=== PATIENT | male | born 1930 | race Caucasian/White ===

== ENCOUNTER 2016-02-29 13:02 | Emergency (ER) | payer OTHER, MEDICAID ==
[2016-02-29 13:14] LABS: % IMMATURE GRANULYOCYTES 0.5 % (0.0-1.1); ABSOLUTE IMMATURE GRANULOCYTES 0.05 10^3/uL (0.00-0.10); ADD DIFF? NO; ADD MORPH? NO; ADD SCAN? NO; ATYPICAL LYMPHOCYTE FLAG 0 (0-99); FRAGMENT RBC FLAG 0 (0-99); HEMOGLOBIN 11.8 g/dL (13.7-17.5); LEFT SHIFT FLG 0 (0-99); LIPEMIA HEMOLYSIS FLAG 80 (0-99); MEAN CELL HEMOGLOBIN 32.1 pg (27.9-34.1); MEAN CELL HEMOGLOBIN CONCENTR. 32.8 g/dL (32.4-36.7); MEAN CELL VOLUME 97.8 fL (81.5-99.8); MEAN PLATELET VOLUME 8.9 fL (8.7-11.7); PLATELET CLUMPS FLAG 20 (0-99); PLATELET COUNT 333 10^3/uL (150-400); RED BLOOD CELL COUNT 3.68 10^6/uL (4.40-6.38); RED CELL DISTRIBUTION WIDTH 13.2 % (11.5-15.2)
[2016-02-29 13:26] VITALS: O2SAT 94
[2016-02-29 13:29] LABS: ALANINE AMINOTRANSFERASE 23 IU/L (21-72); ALBUMIN 3.6 g/dL (3.5-5.0); ALKALINE PHOSPHATASE 119 IU/L (38-126); ANION GAP 12 mEq/L (8-16); ASPARTATE AMINOTRANSFERASE 15 IU/L (17-59); BILIRUBIN,TOTAL 0.5 mg/dL (0.1-1.4); BILIRUBIN-CONJUGATED 0.3 mg/dL (0.0-0.5); BILIRUBIN-UNCONJUGATED 0.2 mg/dL (0.0-1.1); CALCIUM 8.5 mg/dL (8.5-10.4); CARBON DIOXIDE 26 mEq/l (22-31); CHLORIDE 92 mEq/L (97-110); CREATININE 6.5 mg/dL (0.7-1.3); GLOMERULAR FILTRATION RATE 8; GLUCOSE 101 mg/dL (70-100); SODIUM 130 mEq/L (134-144); TOTAL PROTEIN 7.4 g/dL (6.3-8.2)
[2016-02-29 13:32] LABS: POTASSIUM 7.1 mEq/L (3.5-5.2)
[2016-02-29 13:39] LABS: APTT 29.5 SEC (23.0-38.0); INR 1.02 (0.83-1.16); PROTIME(PATIENT) 13.3 SEC (12.0-15.0)
--- NOTE | 2016-02-29 13:45 | CPEKG ---
Heart Rate: 52 RR Interval: 1154 QRSD Interval: 138 QT Interval: 496 QTC Interval: 462 QRS [place]: 122 T Wave [place]: 34 EKG Severity - ABNORMAL ECG - EKG Impression: ACCELERATED JUNCTIONAL ESCAPE RHYTHM EKG Impression: RIGHT BUNDLE BRANCH BLOCK Electronically Signed By: Khloe Richmond 29-Feb-2016 15:11:20
[2016-02-29 14:12] VITALS: TEMP 97.7
--- NOTE | 2016-02-29 15:48 | EDPHY ---
H & P Stated Complaint: Black Tarry Stools - Personal History Current Tetanus Diphtheria and Acellular Pertussis (TDAP): Yes - Medical/Surgical History Hx Asthma: Yes Hx Chronic Respiratory Disease: Yes Hx Diabetes: Yes Hx Cardiac Disease: Yes Hx Renal Disease: Yes Hx Cirrhosis: No Hx Alcoholism: No Hx HIV/AIDS: No Hx Splenectomy or Spleen Trauma: No Other PMH: DMII, tooth extractions, renal failure - refuse dialysis, afib, COPD - Social History Smoking Status: Never smoked Time Seen by Provider: 02/29/16 13:06 HPI/ROS: Chief complaint: Dark stools History of present illness: This is an 85-year-old male who presents to the emergency department with EMS for evaluation of dark stools. Patient reportedly had the onset of symptoms over the last few days. He has had associated abdominal discomfort and fatigue. Symptoms have been persistent. No report of precipitating factors. No alleviating factors. No other associated signs or symptoms including no fevers, no nausea or vomiting, no actual diarrhea or constipation, no urinary symptoms. Further, patient has been asked to start dialysis but he is refusing. Review of systems: A 10 point review of systems was obtained and other than described above was negative (Mac Mccallum) - Physical Exam Exam: General Appearance: Alert, nontoxic. Eyes: Pupils equal and round no pallor or injection. ENT, Mouth: Mucous membranes moist. Respiratory: There are no retractions, lungs are clear to auscultation. Cardiovascular: Regular rate and rhythm. Gastrointestinal: Abdomen is soft and non tender, no masses, bowel sounds normal. Neurological: Alert. Strength and sensation intact and symmetrical. Skin: Warm and dry, no rashes. Musculoskeletal: Neck is supple non tender. Extremities are symmetrical, full range of motion. Psychiatric: There is no agitation. (Mac Mccallum) Constitutional: Initial Vital Signs Temperature (C) 36.5 C 02/29/16 13:09 Heart Rate 64 02/29/16 13:09 Respiratory Rate 14 02/29/16 13:09 Blood Pressure 112/48 L 02/29/16 13:09 O2 Sat (%) 93 02/29/16 13:09 O2 Delivery Mode Nasal Cannula O2 (L/minute) 2 Allergies/Adverse Reactions: amoxicillin [Amoxicillin] Allergy (Verified 07/05/12 15:29) Penicillins Allergy (Verified 07/05/12 15:29) Sulfa (Sulfonamide Antibiotics) Allergy (Verified 07/05/12 15:29) sulfamethoxazole [From Bactrim] Allergy (Verified 07/05/12 15:29) trimethoprim [From Bactrim] Allergy (Verified 07/05/12 15:29) Home Medications: Medication Instructions Recorded Atorvastatin Calcium [Lipitor 10 10 mg PO HS 02/19/15 mg (*)] traZODone [traZODONE 50MG (*)] 50 mg PO HS PRN 02/19/15 Acetaminophen [Tylenol ES 500 mg 500 - 1,000 mg PO Q6 PRN 03/12/15 (*)] Allopurinol [Allopurinol 100 MG 100 mg PO DAILY 03/12/15 (*)] Dextromethorphan HBr [Vicks 5 mg PO Q4 PRN 03/12/15 Dayquil Cough] Gabapentin [Neurontin 100 MG (*)] 100 mg PO TID 03/12/15 Albuterol Sulfate 2.5 mg IH Q6 PRN 07/07/15 Compazine 25mg supp (RX) 25 mg [place] Q6 PRN 07/07/15 Furosemide [Lasix 40 MG (*)] 40 mg PO DAILY 07/07/15 Insulin Aspart Novolog 70/30 4 units PO DAILY 07/07/15 Insulin Detemir 30 units SQ DAILY06 07/07/15 Insulin Detemir 34 units SQ DAILY16 07/07/15 LACTULOSE 30 ml PO DAILY PRN 07/07/15 Loperamide HCl 2 mg PO PRN 07/07/15 Metoprolol Succinate 50 mg PO DAILY 07/07/15 Miralax 17 gm (OTC) 17 gm PO DAILY PRN 07/07/15 Senna Prompt Capsule 1 tab PO DAILY PRN 07/07/15 Tamsulosin HCl 0.4 mg PO HS 07/07/15 Zofran 4 mg PO Q4 PRN 07/07/15 Medical Decision Making ED Course/Re-evaluation: Patient is discussed at length with my secondary supervising physician Dr. Oralia Ellis. Patient presents to the emergency department with EMS for dark stools, abdominal pain and fatigue. Patient is nontoxic. He is afebrile and vital signs are stable. Stool guaiac is negative. H&H is stable. I do not appreciate evidence of an acute GI bleed. However, patient appears to be in renal failure with complications of electrolyte disturbances, specifically hyperkalemia. I have discussed this with the patient with the assistance of the licensed weigher, he understands that he needs dialysis and that without it he ryne . He does not want dialysis. He is aware of the risks. Case management has been consulted, case management has consulted with patient's children and they are aware of the situation, they have talked with their father on the phone, again patient does not want dialysis. At this time I do not see indication for hospitalization. Patient will be discharged back to [facility]. Hospice will be arranged. (Mac Mccallum) Differential Diagnosis: Included but not limited to GI bleed, biliary tract disease, changes in dietary intake, medication usage (Mac Mccallum) Other Provider: The patient was evaluated and managed by the physician office clerk assistant. I have reviewed this chart and I agree with the findings and I am comfortable with the plan of care as documented, as indicated by my signature. I am the secondary supervising physician. (Oralia Ellis) - Data Points Laboratory Results: Laboratory Results 02/29/16 12:45 02/29/16 12:45 Departure - Departure Disposition: Home, Routine, Self-Care Clinical Impression: Stool color abnormal, Renal failure, Hyperkalemia Condition: Critical Additional Instructions: Please provide hospice evaluation/consultation to patient and family. Referrals: OUT OF STATE,. [Primary Care Provider] - As per Instructions
[2016-02-29 17:28] VITALS: BP 108/89; PULSE 56; RESP 20
== END 2016-02-29 17:28 | disposition home or self-care (01) ==
LOC: EDUNIT#
DX: R19.5 Other fecal abnormalities (principal); N19 Unspecified kidney failure; E87.5 Hyperkalemia; E11.9 Type 2 diabetes mellitus without complications; J44.9 Chronic obstructive pulmonary disease, unspecified; Z79.4 Long term (current) use of insulin

== ENCOUNTER 2017-11-12 12:01 | Emergency (ER) | payer OTHER, MEDICAID ==
--- NOTE | 2017-11-12 13:00 | EDPHY ---
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 He also has a history of gout. He fell off of the toilet today and twisted his foot. He has pain in the left foot. He denies pain in his leg or knee. He has chronic edema in his left arm on both feet. He has had ultrasounds within the last month which are negative. He takes Lasix for this. He did not hit his head. He denies injuries to his other extremities or torso. Severity: Severe Modifying factors: None REVIEW OF SYSTEMS: Constitutional: denies: chills, fever, recent illness, recent injury EENTM: denies: blurred vision, double vision, nose congestion Respiratory: denies: cough, shortness of breath Cardiac: denies: chest pain, irregular heart rate, lightheadedness, palpitations Gastrointestinal/Abdominal: denies: abdominal pain, diarrhea, nausea, vomiting, blood streaked stools Genitourinary: denies: dysuria, frequency, hematuria, pain Musculoskeletal: denies: joint pain, muscle pain Skin: denies: lesions, rash, jaundice, bruising Neurological: denies: headache, numbness, paresthesia, tingling, dizziness, weakness Hematologic/Lymphatic: denies: blood clots, easy bleeding, easy bruising Immunologic/allergic: denies: HIV/AIDS, transplant 10 systems reviewed and negative except as noted EXAM: GENERAL: Well-appearing, well-nourished and in no acute distress. HEAD: Atraumatic, normocephalic. EYES: Pupils equal round and reactive to light, extraocular movements intact, sclera anicteric, conjunctiva are normal. ENT: TMs normal, nares patent, oropharynx clear without exudates. Moist mucous membranes. NECK: Normal range of motion, supple without lymphadenopathy or JVD. LUNGS: Breath sounds clear to auscultation bilaterally and equal. No wheezes rales or rhonchi. HEART: Regular rate and rhythm without murmurs, rubs or gallops. ABDOMEN: Soft, nontender, normoactive bowel sounds. No guarding, no rebound. No masses appreciated. BACK: No CVA tenderness, no spinal tenderness, step-offs or deformities EXTREMITIES: Extreme tenderness to left foot diffusely, no obvious deformity. 2+ pitting edema which appears to be baseline. 3+ pitting edema in his left arm which is wrapped and is baseline. NEUROLOGICAL: Cranial nerves II through XII grossly intact. Normal speech, normal gait. 5/5 strength, normal movement in all extremities, normal sensation , normal reflexes PSYCH: Normal mood, normal affect. SKIN: Warm, dry, normal turgor, no visible rashes or lesions. Source: Patient Exam Limitations: Language barrier (Front Desk Clerk used) - Personal History Current Tetanus/Diphtheria Vaccine: Unsure Current Tetanus Diphtheria and Acellular Pertussis (TDAP): Unsure - Medical/Surgical History Hx Asthma: Yes Hx Chronic Respiratory Disease: Yes Hx Diabetes: Yes Hx Cardiac Disease: Yes Hx Renal Disease: Yes Hx Cirrhosis: No Hx Alcoholism: No Hx HIV/AIDS: No Hx Splenectomy or Spleen Trauma: No Other PMH: DMII, tooth extractions, renal failure - refuse dialysis, afib, COPD - Family History Significant Family History: No pertinent family hx - Social History Smoking Status: Never smoked Alcohol Use: Sober Drug Use: None Constitutional: Initial Vital Signs Temperature (C) 36.9 C 11/12/17 12:08 Heart Rate 86 11/12/17 12:08 Respiratory Rate 18 11/12/17 12:08 Blood Pressure 129/61 H 11/12/17 12:08 O2 Sat (%) 97 11/12/17 12:08 O2 Delivery Mode Room Air Allergies/Adverse Reactions: amoxicillin [Amoxicillin] Allergy (Verified 07/05/12 15:29) Penicillins Allergy (Verified 07/05/12 15:29) Sulfa (Sulfonamide Antibiotics) Allergy (Verified 07/05/12 15:29) sulfamethoxazole [From Bactrim] Allergy (Verified 07/05/12 15:29) trimethoprim [From Bactrim] Allergy (Verified 07/05/12 15:29) Home Medications: Medication Instructions Recorded Atorvastatin Calcium [Lipitor 10 10 mg PO HS 02/19/15 mg (*)] traZODone [traZODONE 50MG (*)] 50 mg PO HS PRN 02/19/15 Acetaminophen [Tylenol ES 500 mg 500 - 1,000 mg PO Q6 PRN 03/12/15 (*)] Allopurinol [Allopurinol 100 MG 100 mg PO DAILY 03/12/15 (*)] Dextromethorphan HBr [Vicks 5 mg PO Q4 PRN 03/12/15 Dayquil Cough] Gabapentin [Neurontin 100 MG (*)] 100 mg PO TID 03/12/15 Albuterol Sulfate 2.5 mg IH Q6 PRN 07/07/15 Compazine 25mg supp (RX) 25 mg [place] Q6 PRN 07/07/15 Furosemide [Lasix 40 MG (*)] 40 mg PO DAILY 07/07/15 Insulin Aspart Novolog 70/30 4 units PO DAILY 07/07/15 Insulin Detemir 30 units SQ DAILY06 07/07/15 Insulin Detemir 34 units SQ DAILY16 07/07/15 LACTULOSE 30 ml PO DAILY PRN 07/07/15 Loperamide HCl 2 mg PO PRN 07/07/15 Metoprolol Succinate 50 mg PO DAILY 07/07/15 Miralax 17 gm (OTC) 17 gm PO DAILY PRN 07/07/15 Senna Prompt Capsule 1 tab PO DAILY PRN 07/07/15 Tamsulosin HCl 0.4 mg PO HS 07/07/15 Zofran 4 mg PO Q4 PRN 07/07/15 Acetaminophen [Tylenol Extra 1,000 mg PO TID #30 tablet 11/12/17 Strength] Medical Decision Making - Diagnostics Imaging: Discussed imaging studies w/ will call clerk Radiologist Procedures: Procedure: Splint placement. A [place] boot splint was applied. After application of the splint I returned and re-examined the patient. The splint was adequately immobilizing the joint and distal to the splint the patient's circulation and sensation was intact. ED Course/Re-evaluation: The patient's x-rays are reassuring. I suspect that this is primarily gout flare. I asked the patient if he thought it was a gout flare and he said yes. The patient is exquisitely tender anywhere his palpated on his foot. I will start him on Tylenol. He has been told not to take indomethacin ibuprofen because of his renal failure. Colchicine would possibly be dangerous in this patient. Has with steroids. He is wheelchair bound and does not ambulate at baseline. We have called the detention discussed this with them and they are agreeable with this plan. 1:40 p.m. Radiology called and does see a small nondisplaced cuboid fracture. Will place the patient in a [place] boot and have him follow up with Orthopedics. Differential Diagnosis: Partial list of the Differential diagnosis considered include but were not limited to; gout, sprain, fracture and although unlikely based on the history and physical exam, I also considered knee injury, vascular injury, head injury. I discussed these differential diagnoses and the plan with the patient as well as the usual and expected course. The patient understands that the diagnosis is provisional and that in medicine we are not always correct and that further workup is often warranted. Usual and customary warnings were given. All of the patient's questions were answered. The patient was instructed to return to the emergency department should the symptoms at all worsen or return, otherwise to followup with the physician as we discussed. - Data Points Medications Given: Discontinued Medications Acetaminophen (Tylenol) 1,000 mg PO EDNOW ONE Stop: 11/12/17 13:03 Last Admin: 11/12/17 13:52 Dose: 1,000 mg Departure - Departure Disposition: Home, Routine, Self-Care Clinical Impression: Kidney disease Fracture of cuboid of left foot Qualifiers: Encounter type: initial encounter Fracture type: closed Fracture alignment: nondisplaced Qualified Code(s): S92.215A - Nondisplaced fracture of cuboid bone of left foot, initial encounter for closed fracture Condition: Good Instructions: Foot Fracture in Adults (ED) Additional Instructions: You have a small nondisplaced fracture of the cuboid bone in her left foot. It should heal with conservative treatment. Follow up with Orthopedics in 1 week for re-evaluation. Suspect that the you Sospecho que usted tiene stacy pequena fractura no desplazadadel hueso cuboide en huertas pie parveen. Debe ser sanado con tratamiento conservador Seguimiento con el Ortopedico en stacy semana para stacy re-evaluacion. Referrals: Patient,NotPresent [Primary Care Provider] - As per Instructions Harjeet Lee MD [Medical Doctor] - As per Instructions Prescriptions: Acetaminophen [Tylenol Extra Strength] 1,000 mg PO TID #30 tablet
[2017-11-12] MEDS ORDERED: ACETAMINOPHEN 500 MG TAB PO ONE (13:02)
[2017-11-12 14:10] VITALS: BP 150/76
== END 2017-11-12 14:10 | disposition home or self-care (01) ==
LOC: EDUNIT#
DX: S92.215A Nondisplaced fracture of cuboid bone of left foot, initial encounter for closed fracture (principal); N18.5 Chronic kidney disease, stage 5; E11.22 Type 2 diabetes mellitus with diabetic chronic kidney disease; M10.9 Gout, unspecified; W18.11XA Fall from or off toilet without subsequent striking against object, initial encounter; Y99.8 Other external cause status; I48.91 Unspecified atrial fibrillation; J44.9 Chronic obstructive pulmonary disease, unspecified; Z99.3 Dependence on wheelchair

== ENCOUNTER 2018-01-16 12:32 | Emergency (ER) | payer OTHER, MEDICAID ==
--- NOTE | 2018-01-16 13:11 | EDPHY ---
H & P Time Seen by Provider: 01/16/18 12:52 HPI/ROS: CHIEF COMPLAINT: Cardiac arrest HISTORY OF PRESENT ILLNESS: The patient is brought in by paramedics with CPR in progress. He reportedly was being transported to the hospital for evaluation of weakness over the past day. The patient has a history of end- stage renal disease but is not receive dialysis. No additional history was obtainable. The patient arrives in the emergency department with CPR in progress. He has received no medications pre-hospital. REVIEW OF SYSTEMS: Unobtainable Source: EMS - Medical/Surgical History Hx Asthma: Yes Hx Chronic Respiratory Disease: Yes Hx Diabetes: Yes Hx Cardiac Disease: Yes Hx Renal Disease: Yes Hx Cirrhosis: No Hx Alcoholism: No Hx HIV/AIDS: No Hx Splenectomy or Spleen Trauma: No Other PMH: DMII, tooth extractions, renal failure - refuse dialysis, afib, COPD - Social History Smoking Status: Never smoked - Physical Exam Exam: General Appearance: Obtunded, no spontaneous respirations, no purposeful movement Eyes: Pupils equal and round no pallor or injection ENT, Mouth: Mucous membranes moist Respiratory: [id number] Cardiovascular: Unable to auscultate breath sounds Gastrointestinal: Distended Neurological: GCS 3 Skin: Warm and dry, no rashes Musculoskeletal: No gross deformity Extremities: symmetrical, full range of motion Allergies/Adverse Reactions: amoxicillin [Amoxicillin] Allergy (Verified 07/05/12 15:29) Penicillins Allergy (Verified 07/05/12 15:29) Sulfa (Sulfonamide Antibiotics) Allergy (Verified 07/05/12 15:29) sulfamethoxazole [From Bactrim] Allergy (Verified 07/05/12 15:29) trimethoprim [From Bactrim] Allergy (Verified 07/05/12 15:29) Home Medications: Medication Instructions Recorded Atorvastatin Calcium [Lipitor 10 10 mg PO HS 02/19/15 mg (*)] traZODone [traZODONE 50MG (*)] 50 mg PO HS PRN 02/19/15 Acetaminophen [Tylenol ES 500 mg 500 - 1,000 mg PO Q6 PRN 03/12/15 (*)] Allopurinol [Allopurinol 100 MG 100 mg PO DAILY 03/12/15 (*)] Dextromethorphan HBr [Vicks 5 mg PO Q4 PRN 03/12/15 Dayquil Cough] Gabapentin [Neurontin 100 MG (*)] 100 mg PO TID 03/12/15 Albuterol Sulfate 2.5 mg IH Q6 PRN 07/07/15 Compazine 25mg supp (RX) 25 mg [place] Q6 PRN 07/07/15 Furosemide [Lasix 40 MG (*)] 40 mg PO DAILY 07/07/15 Insulin Aspart Novolog 70/30 4 units PO DAILY 07/07/15 Insulin Detemir 30 units SQ DAILY06 07/07/15 Insulin Detemir 34 units SQ DAILY16 07/07/15 LACTULOSE 30 ml PO DAILY PRN 07/07/15 Loperamide HCl 2 mg PO PRN 07/07/15 Metoprolol Succinate 50 mg PO DAILY 07/07/15 Miralax 17 gm (OTC) 17 gm PO DAILY PRN 07/07/15 Senna Prompt Capsule 1 tab PO DAILY PRN 07/07/15 Tamsulosin HCl 0.4 mg PO HS 07/07/15 Zofran 4 mg PO Q4 PRN 07/07/15 Acetaminophen [Tylenol Extra 1,000 mg PO TID #30 tablet 11/12/17 Strength] Medical Decision Making Procedures: Procedure: RSI Intubation Indication for the procedure was cardiac arrest. The patient was preoxygenated with 100% oxygen by face mask. The patient was orally endotracheally intubated under direct visualization with a 8.0 ETT. Tracheal intubation was confirmed with misting on the tube; breath sounds were auscultated equally bilaterally; appropriate color change with [place] CO2 detector, capnography waveform is appropriate. The procedure was performed by myself. Procedure: Limited transthoracic echocardiogram. A limited transthoracic echocardiogram was performed and interpreted by myself for cardiac arrest. Limited transthoracic echocardiogram: The pericardium was visualized and found to be negative for pericardial fluid. Cardiac activity was absent. The study was negative for pericardial effusion. The study demonstrated absence of cardiac activity. ED Course/Re-evaluation: The patient arrives to the emergency department with asystolic cardiac arrest. The patient had an I/O established and received IV epinephrine, calcium and bicarb. CPR was continued and the patient received multiple rounds of IV epinephrine. The patient was intubated by myself. The patient was underwent DC cardioversion x2 for possible VFib. The patient received IV amiodarone After 20 min of unsuccessful resuscitation the patient was pronounced at 12 :52 p.m.. Total down time was greater than 30 min. Family and corner have been notified. Critical Care Time: Critical care time exclusive of procedures and exclusive of the PA's time was 35 minutes, performed by myself, Inocencio Gonzáles MD. - Data Points Laboratory Results: 01/16/18 12:43 POC Hgb 11.9 gm/dL L gm/dL (13.7-17.5) POC Hct 35 % L % (40-51) POC Sodium 136 mEq/L mEq/L (135-145) POC Potassium 5.4 mEq/L H mEq/L (3.3-5.0) POC Chloride 107 mEq/L mEq/L (97-110) POC BUN 41 mg/dL H mg/dL (7-23) POC Creatinine 4.5 mg/dL H mg/dL (0.7-1.3) POC Glucose 118 mg/dL H mg/dL (70-100) Point of Care Test Results: Chemistry 01/16/18 12:43 POC Sodium 136 mEq/L mEq/L (135-145) POC Potassium 5.4 mEq/L H mEq/L (3.3-5.0) POC Chloride 107 mEq/L mEq/L (97-110) POC BUN 41 mg/dL H mg/dL (7-23) POC Creatinine 4.5 mg/dL H mg/dL (0.7-1.3) POC Glucose 118 mg/dL H mg/dL (70-100) ISTAT H&H 01/16/18 12:43 POC Hgb 11.9 gm/dL L gm/dL (13.7-17.5) POC Hct 35 % L % (40-51) Departure - Departure Disposition: Clinical Impression: Cardiac arrest Condition: Critical Referrals: Patient,NotPresent [Primary Care Provider] - As per Instructions
--- NOTE | 2018-01-16 18:35 | ASMTCMCOM ---
CM Note CM Note Notes: Pt presented to the ED via EMS w/CPR in progress. Pt was en route from [facility] for AMS/SOB when he became unresponsive. This CM called [facility] and spoke w/OFELIA Lopez. Jessica said she had contacted pt's daughter and EUGENIO Vega ([phone]) who lives in [place] and let her know pt was being sent to the ED. After 20 minutes of unsuccessful resuscitation efforts, the pt was pronounced . This CM called Tammi and notified her of pt's . Tammi states she will contact her sister, Mae Wu ([phone]) who lives in [place] and is SSO. Tammi called back and stated that she has started researching local mortuaries and will taty back to let us know which one they have selected. Ultimately, Tammi and Mae would like to take the pt home to [place]. Later learned that the middle school baseball coach was also communicating with Tammi and was informed of the mortuary they had selected and communicated this to security. Tammi states she is about 8 hrs away and will be driving to [facility] or tomorrow morning. Date Signed: 01/16/2018 06:35 PM Electronically Signed By:Amairani García RN
--- NOTE | 2018-01-16 18:37 | ASDISCHSUM ---
Discharge Information Plan Status: Medically Cleared to Leave: Discharge Date:01/16/2018 02:32 PM CM D/C Disposition: ADT D/C Disposition: Projected Discharge Date:01/16/2018 02:32 PM Transportation at D/C: Discharge Delay Reason: Follow-Up Date:01/16/2018 02:32 PM Discharge Slot: Final Diagnosis: Placement Information Patient Contact Information Contact Name:DONOVAN Relationship:Other Address:[address] Work Phone: City:[place] Phone: State/Zip Code:[place] [address] Email: Financial Information Financial Class:Medicare Primary Plan Desc:MEDICARE OUTPATIENT Primary Plan Number:[id number] Secondary Plan Desc:MEDICAID HEALTH FIRST GUM DIPPER Secondary Plan Number:[id number] Assessment Information [facility] Progress Note CM Note CM Note Notes: Pt presented to the ED via EMS w/CPR in progress. Pt was en route from [facility] for AMS/SOB when he became unresponsive. This CM called [facility] and spoke w/OFELIA Lopez. Jessica said she had contacted pt's daughter and EUGENIO Vega ([phone]) who lives in [place] and let her know pt was being sent to the ED. After 20 minutes of unsuccessful resuscitation efforts, the pt was pronounced . This CM called Tammi and notified her of pt's . Tammi states she will contact her sister, Mae Wu ([phone]) who lives in [place] and is SSO. Tammi called back and stated that she has started researching local mortuaries and will taty back to let us know which one they have selected. Ultimately, Tammi and Mae would like to take the pt home to [place]. Later learned that the welding machine operator helper arc was also communicating with Tammi and was informed of the mortuary they had selected and communicated this to security. Tammi states she is about 8 hrs away and will be driving to [place] tonight or tomorrow morning. Date Signed: 01/16/2018 06:35 PM Electronically Signed By:Amairani García RN Intervention Information Intervention Type:Locating Emergency Contact Date of Service:01/16/2018 06:35 PM Patient Type:Emergency Room Staff Member:OFELIA García Sharon Hours:0.5 Discipline:Drawing In Machine Tender Helper Severity: Comment:
== END 2018-01-16 14:32 | disposition expired ==
LOC: EDUNIT#
DX: I46.9 Cardiac arrest, cause unspecified (principal); N18.6 End stage renal disease
CPT/HCPCS: 82435-PO; 82565-PO; 82947-PO; 84132-PO; 84295-PO; 84520-PO; 85014-PO